=== PATIENT | male | born 1970 | race African-American/Black ===

== ENCOUNTER 2016-05-26 06:17 | Emergency (ER) | payer OTHER ==
[~2016-05-26] VITALS: Ht 182.9 cm; Wt 100.0 kg
[~2016-05-26 06:17] MED LIST: ACET-784 PO; IBUP-1681 PO
[2016-05-26] MEDS ORDERED: POLY10DR3 OP (06:19)
[2016-05-26 06:58] VITALS: BP 135/84
== END 2016-05-26 08:37 | disposition home or self-care (01) ==
LOC: EMS 06:18
DX: H10.32 Unspecified acute conjunctivitis, left eye (principal)
CPT/HCPCS: 99283